=== PATIENT | female | born 1950 | race Caucasian/White ===

== ENCOUNTER → 2016-11-10 | Outpatient (CLI) | payer BC ==
--- NOTE | ~2016-11-10 | MY29 ---
[facility] A Service [facility] RADIOLOGY TEXT RESULTS PATIENT: TAN NOEL LOCATION: [facility] : 54 UNIT #: [id number] AGE: [address]: Carolee Lee MD SEX: F ORDER DR: [id number] [facility]. [place], [place] [address] [id number] O MR#: [id number] Acc #: [id number] NAME: TAN NOEL. : 1950 SEX: F STUDY DATE/TIME: 11/10/2016 14:20 UNIT: [facility] ROOM: STUDY DESCRIPTION: MY LURDES SCREENING W/ CAD BILAT Attending Physician: Carolee Lee M.D. Ordering Physician: Carolee Lee M.D. Primary Care Physician: Carolee Lee M.D. MEDICAL IMAGING REPORT This report is preliminary unless electronic signature is present EXAM Bilateral digital screening mammogram with CAD. HISTORY Routine screening. No current complaints. No family history of breast cancer. COMPARISON 10/15/2015, 10/05/2012. TECHNIQUE MLO and CC digital views of each breast were obtained. The exam was reviewed with an FDA-approved CAD. FINDINGS The breasts heterogenously dense. There are no masses or abnormal calcifications. IMPRESSION No change. No evidence of malignancy. BIRADS category 1N. Patients over the age of 40 are entered into a reminder system with target due date for the next mammogram. A result letter will also be sent to the patient. BIRADS: 1 Negative. Dictated by... Jose Grigsby M.D. THIS IS AN ELECTRONICALLY VERIFIED REPORT [facility] A Service [facility] RADIOLOGY TEXT RESULTS PATIENT: TAN NOEL LOCATION: [facility] : 54 UNIT #: [id number] AGE: [address]: Carolee Lee MD SEX: F ORDER DR: Jose Grigsby M.D. at 11/10/2016 10:09 PM FEL/jt TD: 11/10/2016 18:28 JOB #: [id number] MEDICAL IMAGING REPORT Page 1 of 1 COPY
== END | disposition home or self-care (01) ==
LOC: CWCC 13:30
DX: Z12.31 Encounter for screening mammogram for malignant neoplasm of breast (principal)
CPT/HCPCS: G0202